=== PATIENT | female | born 1945 | race Caucasian/White ===

== ENCOUNTER 2018-03-23 11:25 | Inpatient (IN) | payer MEDICARE, OTHER ==
[2018-03-23 12:27] LABS: ADD MAN DIFF? NO
[2018-03-23 12:32] LABS: ADD UMIC NO; UR ASCORBIC ACID NEGATIVE (NEGATIVE); UR BILIRUBIN (Dip) NEGATIVE (NEGATIVE); UR BLOOD (Dip) NEGATIVE (NEGATIVE); UR CLARITY CLEAR (CLEAR); UR COLOR STRAW (YELLOW); UR GLUCOSE (Dip) NEGATIVE (NEGATIVE); UR KETONES (Dip) NEGATIVE (NEGATIVE); UR LEUKOCYTE ESTERASE (Dip) NEGATIVE Leu/ul (NEGATIVE); UR NITRITE (Dip) NEGATIVE (NEGATIVE); UR SPECIFIC GRAVITY (Dip) 1.005 (1.003-1.030); UR TOTAL PROTEIN (Dip) NEGATIVE (NEGATIVE); UR UROBILINOGEN (Dip) NEGATIVE (NEGATIVE)
[2018-03-23 12:34] LABS: WHITE BLOOD COUNT 8.6 10^3/ul (4.8-10.8)
[2018-03-23 12:34] LABS: BASOPHIL # 0.1 10^3/ul (0.0-0.1); BASOPHILS % 0.6 % (0.0-2.0); EOSINOPHILS # 0.1 10^3/ul (0.0-0.5); EOSINOPHILS % 0.9 % (0.0-7.0); HEMATOCRIT 37.9 % (37.0-47.0); LYMPHOCYTES # 2.4 10^3/ul (0.8-2.9); LYMPHOCYTES % 27.6 % (15.0-51.0); MEAN CORPUSCULAR HEMOGLOBIN 28.7 pg (29.0-33.0); MEAN CORPUSCULAR HGB CONC 34.3 g/dl (32.0-37.0); MEAN CORPUSCULAR VOLUME 83.7 fl (82.0-101.0); MEAN PLATELET VOLUME 12.5 fl (7.4-10.4); MONOCYTE # 0.5 10^3/ul (0.3-0.9); MONOCYTES % 5.6 % (0.0-11.0); NEUTROPHIL # 5.6 10^3/ul (1.6-7.5); NEUTROPHILS % 65.1 % (39.0-77.0); PLATELET COUNT 196 10^3/UL (140-415); RED BLOOD COUNT 4.53 10^6/ul (4.20-5.40); RED CELL DISTRIBUTION WIDTH 13.4 % (11.5-14.5)
[2018-03-23 12:48] LABS: ALANINE AMINOTRANSFERASE 22 IU/L (13-69); ALBUMIN 4.1 g/dl (3.3-4.9); ALBUMIN/GLOBULIN RATIO 1.17; ALKALINE PHOSPHATASE 82 IU/L (42-121); ANION GAP 15 (8-16); ASPARTATE AMINO TRANSFERASE 22 IU/L (15-46); BILIRUBIN,INDIRECT 0.8 mg/dl (0-1.1); BILIRUBIN,TOTAL 0.8 mg/dl (0.2-1.3); BLOOD UREA NITROGEN 22 mg/dl (7-20); CALCIUM 9.6 mg/dl (8.4-10.2); CARBON DIOXIDE 23 mmol/L (21-31); CHLORIDE 109 mmol/L (97-110); CREATINE KINASE 71 IU/L (23-200); CREATININE 0.92 mg/dl (0.44-1.00); GLUCOSE 108 mg/dl (70-220); LIPASE 148 U/L (23-300); POTASSIUM 3.5 mmol/L (3.5-5.1); SODIUM 143 mmol/L (135-144); TOTAL PROTEIN 7.6 g/dl (6.1-8.1)
[2018-03-23 12:50] LABS: INR 0.93; PARTIAL THROMBOPLASTIN TIME 27.5 Sec (25.0-35.0); PROTIME 12.6 Sec (11.9-14.9)
[2018-03-23 12:59] LABS: B-TYPE NATRIURETIC PEPTIDE 79 PG/ML (0-125); CK INDEX 1.3; TROPONIN-I < 0.012 ng/ml (0.000-0.120)
[2018-03-23] MEDS ORDERED: ONDANSETRON 4 MG INJ IV ×2 (14:00→16:30)
[2018-03-23] MEDS ORDERED: ACETAMINOPHEN 325 MG TAB PO (14:00)
[2018-03-23] MEDS ORDERED: ATROPINE 1 MG/10 ML SYRINGE (16:20)
[2018-03-23] MEDS ORDERED: ATROPINE 1 MG/10 ML SYRINGE IV (16:30)
[2018-03-23] MEDS ORDERED: NACL 0.9% 3 ML SYG IV (16:30)
[2018-03-23 16:49] LABS: FREE T4 (FREE THYROXINE) 1.42 ng/dl (0.78-2.44)
[2018-03-23 19:20] LABS: CREATINE KINASE 61 IU/L (23-200)
[2018-03-23 19:24] LABS: HEMOGLOBIN A1C 5.8 % (0-5.9)
[2018-03-23 19:30] LABS: CK INDEX 1.6; CK-MB 0.96 ng/ml (0.0-2.4); TROPONIN-I 0.013 ng/ml (0.000-0.120)
[2018-03-23] MEDS: ATORVASTATIN 40 MG TAB PO (20:21)
[2018-03-23] MEDS: BENAZEPRIL 40 MG TAB PO (20:22)
[2018-03-23] MEDS: AMLODIPINE 10 MG TAB PO (20:22)
[2018-03-24 00:20] LABS: CREATINE KINASE 56 IU/L (23-200)
[2018-03-24 00:33] LABS: CK INDEX 1.7; CK-MB 0.94 ng/ml (0.0-2.4)
[2018-03-24 06:03] LABS: ADD MAN DIFF? NO
[2018-03-24 06:12] LABS: BASOPHIL # 0.1 10^3/ul (0.0-0.1); BASOPHILS % 0.7 % (0.0-2.0); EOSINOPHILS # 0.2 10^3/ul (0.0-0.5); EOSINOPHILS % 1.8 % (0.0-7.0); HEMATOCRIT 37.1 % (37.0-47.0); HEMOGLOBIN 12.3 g/dl (12.0-16.0); LYMPHOCYTES # 3.1 10^3/ul (0.8-2.9); LYMPHOCYTES % 33.3 % (15.0-51.0); MEAN CORPUSCULAR HEMOGLOBIN 28.5 pg (29.0-33.0); MEAN CORPUSCULAR HGB CONC 33.2 g/dl (32.0-37.0); MEAN CORPUSCULAR VOLUME 86.1 fl (82.0-101.0); MEAN PLATELET VOLUME 12.5 fl (7.4-10.4); MONOCYTE # 0.7 10^3/ul (0.3-0.9); MONOCYTES % 7.3 % (0.0-11.0); NEUTROPHIL # 5.3 10^3/ul (1.6-7.5); NEUTROPHILS % 56.6 % (39.0-77.0); PLATELET COUNT 180 10^3/UL (140-415); RED BLOOD COUNT 4.31 10^6/ul (4.20-5.40); RED CELL DISTRIBUTION WIDTH 13.4 % (11.5-14.5)
[2018-03-24 06:12] LABS: WHITE BLOOD COUNT 9.4 10^3/ul (4.8-10.8)
[2018-03-24 06:23] LABS: PHOSPHORUS 5.3 mg/dl (2.5-4.9)
[2018-03-24 06:23] LABS: CHOL/HDL RATIO 4.9 RATIO; CHOLESTEROL 149 mg/dl (100-200); HDL CHOLESTEROL 30 mg/dl (33-92); LDL CHOLESTEROL,CALCULATED 74 mg/dl; MAGNESIUM 1.8 mg/dl (1.7-2.5); TRIGLYCERIDES 227 mg/dl (0-149)
[2018-03-24 06:27] LABS: ALANINE AMINOTRANSFERASE 21 IU/L (13-69); ALBUMIN 3.6 g/dl (3.3-4.9); ALBUMIN/GLOBULIN RATIO 1.12; ALKALINE PHOSPHATASE 68 IU/L (42-121); ANION GAP 14 (8-16); ASPARTATE AMINO TRANSFERASE 19 IU/L (15-46); BILIRUBIN,INDIRECT 0.6 mg/dl (0-1.1); BILIRUBIN,TOTAL 0.6 mg/dl (0.2-1.3); BLOOD UREA NITROGEN 31 mg/dl (7-20); CALCIUM 9.2 mg/dl (8.4-10.2); CARBON DIOXIDE 25 mmol/L (21-31); CHLORIDE 107 mmol/L (97-110); GLUCOSE 99 mg/dl (70-220); POTASSIUM 3.8 mmol/L (3.5-5.1); SODIUM 142 mmol/L (135-144); TOTAL PROTEIN 6.8 g/dl (6.1-8.1)
[2018-03-24] MEDS: HYDROCHLOROTHIAZIDE 25 MG TAB PO (08:26)
[2018-03-24] MEDS: BENAZEPRIL 40 MG TAB PO ×2 (08:26→20:39)
[2018-03-24] MEDS: ENOXAPARIN 40 MG/0.4 ML SYG SC (08:29)
[2018-03-24] MEDS: AMLODIPINE 10 MG TAB PO (20:39)
[2018-03-24] MEDS: ATORVASTATIN 40 MG TAB PO (20:40)
[2018-03-25 05:35] LABS: ADD MAN DIFF? NO
[2018-03-25 05:37] LABS: BASOPHIL # 0.1 10^3/ul (0.0-0.1); BASOPHILS % 0.7 % (0.0-2.0); EOSINOPHILS # 0.2 10^3/ul (0.0-0.5); EOSINOPHILS % 2.5 % (0.0-7.0); HEMATOCRIT 37.4 % (37.0-47.0); HEMOGLOBIN 12.6 g/dl (12.0-16.0); LYMPHOCYTES # 2.5 10^3/ul (0.8-2.9); LYMPHOCYTES % 30.1 % (15.0-51.0); MEAN CORPUSCULAR HEMOGLOBIN 28.9 pg (29.0-33.0); MEAN CORPUSCULAR HGB CONC 33.7 g/dl (32.0-37.0); MEAN CORPUSCULAR VOLUME 85.8 fl (82.0-101.0); MEAN PLATELET VOLUME 11.7 fl (7.4-10.4); MONOCYTE # 0.6 10^3/ul (0.3-0.9); MONOCYTES % 7.5 % (0.0-11.0); NEUTROPHIL # 4.9 10^3/ul (1.6-7.5); PLATELET COUNT 163 10^3/UL (140-415); RED BLOOD COUNT 4.36 10^6/ul (4.20-5.40); RED CELL DISTRIBUTION WIDTH 13.2 % (11.5-14.5)
[2018-03-25 05:37] LABS: WHITE BLOOD COUNT 8.4 10^3/ul (4.8-10.8)
[2018-03-25 06:01] LABS: ANION GAP 11 (8-16); BLOOD UREA NITROGEN 29 mg/dl (7-20); CALCIUM 9.5 mg/dl (8.4-10.2); CARBON DIOXIDE 25 mmol/L (21-31); CHLORIDE 111 mmol/L (97-110); CREATININE 0.96 mg/dl (0.44-1.00); GLUCOSE 108 mg/dl (70-220); POTASSIUM 3.8 mmol/L (3.5-5.1); SODIUM 143 mmol/L (135-144)
[2018-03-25 06:36] LABS: PHOSPHORUS 3.9 mg/dl (2.5-4.9)
[2018-03-25] MEDS: BENAZEPRIL 40 MG TAB PO ×2 (08:05→20:50)
[2018-03-25] MEDS: hydrALAzine 20 MG INJ IV (08:06)
[2018-03-25] MEDS: HYDROCHLOROTHIAZIDE 25 MG TAB PO (08:06)
[2018-03-25] MEDS: ENOXAPARIN 40 MG/0.4 ML SYG SC (08:36)
[2018-03-25] MEDS: ATORVASTATIN 40 MG TAB PO (20:49)
[2018-03-25] MEDS: AMLODIPINE 10 MG TAB PO (20:49)
[2018-03-26 05:52] LABS: ADD MAN DIFF? NO
[2018-03-26 06:00] LABS: WHITE BLOOD COUNT 8.3 10^3/ul (4.8-10.8)
[2018-03-26 06:00] LABS: BASOPHIL # 0.1 10^3/ul (0.0-0.1); BASOPHILS % 0.6 % (0.0-2.0); EOSINOPHILS # 0.2 10^3/ul (0.0-0.5); EOSINOPHILS % 2.2 % (0.0-7.0); HEMATOCRIT 37.9 % (37.0-47.0); HEMOGLOBIN 12.8 g/dl (12.0-16.0); LYMPHOCYTES # 2.5 10^3/ul (0.8-2.9); LYMPHOCYTES % 30.3 % (15.0-51.0); MEAN CORPUSCULAR HEMOGLOBIN 28.9 pg (29.0-33.0); MEAN CORPUSCULAR HGB CONC 33.8 g/dl (32.0-37.0); MEAN CORPUSCULAR VOLUME 85.6 fl (82.0-101.0); MEAN PLATELET VOLUME 12.4 fl (7.4-10.4); MONOCYTE # 0.6 10^3/ul (0.3-0.9); MONOCYTES % 6.8 % (0.0-11.0); PLATELET COUNT 178 10^3/UL (140-415); RED BLOOD COUNT 4.43 10^6/ul (4.20-5.40); RED CELL DISTRIBUTION WIDTH 13.2 % (11.5-14.5)
[2018-03-26 06:42] LABS: ANION GAP 11 (8-16); BLOOD UREA NITROGEN 28 mg/dl (7-20); CALCIUM 9.5 mg/dl (8.4-10.2); CARBON DIOXIDE 26 mmol/L (21-31); CHLORIDE 110 mmol/L (97-110); CREATININE 0.96 mg/dl (0.44-1.00); GLUCOSE 110 mg/dl (70-220); POTASSIUM 3.8 mmol/L (3.5-5.1); SODIUM 143 mmol/L (135-144)
[2018-03-26 06:46] LABS: MAGNESIUM 1.9 mg/dl (1.7-2.5)
[2018-03-26 06:46] LABS: PHOSPHORUS 3.8 mg/dl (2.5-4.9)
[2018-03-26] MEDS: BENAZEPRIL 40 MG TAB PO ×2 (08:27→20:39)
[2018-03-26] MEDS: HYDROCHLOROTHIAZIDE 25 MG TAB PO ×2 (08:27→10:44)
[2018-03-26] MEDS: ENOXAPARIN 40 MG/0.4 ML SYG SC (08:30)
[2018-03-26] MEDS ORDERED: HYDROCHLOROTHIAZIDE 12.5 MG CAP PO (10:00)
[2018-03-26] MEDS ORDERED: HYDROCHLOROTHIAZIDE 25 MG TAB PO (18:00)
[2018-03-26] MEDS: ATORVASTATIN 40 MG TAB PO (20:38)
[2018-03-26] MEDS: AMLODIPINE 10 MG TAB PO (20:38)
[2018-03-27 06:01] LABS: ADD MAN DIFF? NO
[2018-03-27 06:10] LABS: WHITE BLOOD COUNT 8.6 10^3/ul (4.8-10.8)
[2018-03-27 06:10] LABS: BASOPHIL # 0.1 10^3/ul (0.0-0.1); BASOPHILS % 0.7 % (0.0-2.0); EOSINOPHILS # 0.2 10^3/ul (0.0-0.5); EOSINOPHILS % 2.6 % (0.0-7.0); HEMATOCRIT 38.2 % (37.0-47.0); HEMOGLOBIN 12.8 g/dl (12.0-16.0); LYMPHOCYTES # 2.7 10^3/ul (0.8-2.9); LYMPHOCYTES % 31.7 % (15.0-51.0); MEAN CORPUSCULAR HEMOGLOBIN 28.9 pg (29.0-33.0); MEAN CORPUSCULAR HGB CONC 33.5 g/dl (32.0-37.0); MEAN CORPUSCULAR VOLUME 86.2 fl (82.0-101.0); MEAN PLATELET VOLUME 12.1 fl (7.4-10.4); MONOCYTE # 0.7 10^3/ul (0.3-0.9); MONOCYTES % 7.9 % (0.0-11.0); NEUTROPHIL # 4.9 10^3/ul (1.6-7.5); PLATELET COUNT 169 10^3/UL (140-415); RED BLOOD COUNT 4.43 10^6/ul (4.20-5.40); RED CELL DISTRIBUTION WIDTH 13.5 % (11.5-14.5)
[2018-03-27] MEDS: SOD CHLORIDE 0.9% 1,000 ML IV ×2 (06:17→19:20)
[2018-03-27] MEDS ORDERED: EPHEDrine SULFATE 50 MG/5 ML SYG (07:00)
[2018-03-27 07:17] LABS: ANION GAP 14 (8-16); BLOOD UREA NITROGEN 28 mg/dl (7-20); CALCIUM 9.5 mg/dl (8.4-10.2); CARBON DIOXIDE 25 mmol/L (21-31); CHLORIDE 108 mmol/L (97-110); CREATININE 0.97 mg/dl (0.44-1.00); GLUCOSE 107 mg/dl (70-220); POTASSIUM 3.7 mmol/L (3.5-5.1); SODIUM 143 mmol/L (135-144)
[2018-03-27] MEDS: ENOXAPARIN 40 MG/0.4 ML SYG SC (08:23)
[2018-03-27] MEDS: hydrALAzine 20 MG INJ IV (08:24)
[2018-03-27] MEDS ORDERED: HYDROCHLOROTHIAZIDE 50 MG TAB PO (09:00)
[2018-03-27] MEDS: HYDROCHLOROTHIAZIDE 25 MG TAB PO (10:04)
[2018-03-27] MEDS: BENAZEPRIL 40 MG TAB PO ×2 (10:04→20:47)
[2018-03-27] MEDS ORDERED: CEFAZOLIN 1 GM/50 ML (PMX) 50 ML IVPB ×2 (15:41→15:43)
[2018-03-27] MEDS ORDERED: PROPOFOL 20 ML (15:42)
[2018-03-27] MEDS ORDERED: MIDAZOLAM 1 MG/ML 2 ML INJ (15:42)
[2018-03-27] MEDS ORDERED: FENTAnyl 50 MCG/ML VIAL (15:42)
[2018-03-27] MEDS ORDERED: BUPIVACAINE 0.5% (SDV) 30 ML INJ (15:47)
[2018-03-27] MEDS ORDERED: IOHEXOL 350MG/ML 50 ML BTL (15:48)
[2018-03-27] MEDS ORDERED: SOD CHLORIDE 0.9% 500 ML (15:49)
[2018-03-27] MEDS ORDERED: morphine 2 MG INJ IV ×2 (17:30)
[2018-03-27] MEDS ORDERED: POLYMYXIN/BACITRACIN 1L IRRIG (17:35)
[2018-03-27] MEDS: CEFAZOLIN 1 GM/50 ML (PMX) 50 ML IVPB ×2 (18:56→23:51)
[2018-03-27] MEDS: ACETAMINOPHEN 325 MG TAB PO (20:46)
[2018-03-27] MEDS: ATORVASTATIN 40 MG TAB PO (20:46)
[2018-03-27] MEDS: AMLODIPINE 10 MG TAB PO (20:47)
[2018-03-28] MEDS: SOD CHLORIDE 0.9% 1,000 ML IV ×2 (05:45→08:40)
[2018-03-28] MEDS: CEFAZOLIN 1 GM/50 ML (PMX) 50 ML IVPB ×2 (05:45→10:57)
[2018-03-28 08:09] LABS: ADD MAN DIFF? NO
[2018-03-28 08:27] LABS: BASOPHIL # 0.1 10^3/ul (0.0-0.1); BASOPHILS % 0.7 % (0.0-2.0); EOSINOPHILS # 0.2 10^3/ul (0.0-0.5); EOSINOPHILS % 1.5 % (0.0-7.0); HEMATOCRIT 37.4 % (37.0-47.0); HEMOGLOBIN 12.5 g/dl (12.0-16.0); LYMPHOCYTES # 2.4 10^3/ul (0.8-2.9); LYMPHOCYTES % 22.9 % (15.0-51.0); MEAN CORPUSCULAR HEMOGLOBIN 28.9 pg (29.0-33.0); MEAN CORPUSCULAR HGB CONC 33.4 g/dl (32.0-37.0); MEAN CORPUSCULAR VOLUME 86.6 fl (82.0-101.0); MEAN PLATELET VOLUME 12.9 fl (7.4-10.4); MONOCYTE # 0.8 10^3/ul (0.3-0.9); MONOCYTES % 7.6 % (0.0-11.0); NEUTROPHIL # 7.1 10^3/ul (1.6-7.5); NEUTROPHILS % 66.9 % (39.0-77.0); PLATELET COUNT 163 10^3/UL (140-415); RED BLOOD COUNT 4.32 10^6/ul (4.20-5.40); RED CELL DISTRIBUTION WIDTH 13.7 % (11.5-14.5)
[2018-03-28 08:27] LABS: WHITE BLOOD COUNT 10.6 10^3/ul (4.8-10.8)
[2018-03-28 08:44] LABS: ANION GAP 13 (8-16); BLOOD UREA NITROGEN 17 mg/dl (7-20); CALCIUM 9.3 mg/dl (8.4-10.2); CARBON DIOXIDE 25 mmol/L (21-31); CHLORIDE 108 mmol/L (97-110); CREATININE 0.88 mg/dl (0.44-1.00); GLUCOSE 104 mg/dl (70-220); MAGNESIUM 1.6 mg/dl (1.7-2.5); POTASSIUM 3.5 mmol/L (3.5-5.1); SODIUM 142 mmol/L (135-144)
[2018-03-28] MEDS: HYDROCHLOROTHIAZIDE 25 MG TAB PO (09:00)
[2018-03-28] MEDS: BENAZEPRIL 40 MG TAB PO (09:00)
[2018-03-28] MEDS: METOPROLOL 25 MG TAB PO (11:01)
== END 2018-03-28 16:05 | disposition home or self-care (01) | DRG 244 ==
LOC: E/R 11:25 → TEL 13:32
PROC: 0JH606Z Insertion of Pacemaker, Dual Chamber into Chest Subcutaneous Tissue and Fascia, Open Approach (ICD-10-PCS; principal; 2018-03-27 15:32)
PROC: 02H63JZ Insertion of Pacemaker Lead into Right Atrium, Percutaneous Approach (ICD-10-PCS; 2018-03-27 15:32)
PROC: 02HK3JZ Insertion of Pacemaker Lead into Right Ventricle, Percutaneous Approach (ICD-10-PCS; 2018-03-27 15:32)
DX: I44.1 Atrioventricular block, second degree (principal); I10 Essential (primary) hypertension; E78.5 Hyperlipidemia, unspecified; E66.9 Obesity, unspecified; Z68.33 Body mass index [BMI] 33.0-33.9, adult; I45.10 Unspecified right bundle-branch block; R55 Syncope and collapse
CPT/HCPCS: 36415; 71045; 80048; 80053; 80061; 81003; 82550; 82553; 83036; 83690; 83735; 83880; 84100; 84439; 84443; 84484; 85025; 85610; 85730; 93005; 93306; 99285-25; G0378